=== PATIENT | female | born 1945 | race Caucasian/White ===

== ENCOUNTER 2017-10-26 08:25 | Day surgery (SDC) | payer MEDICARE, OTHER ==
--- NOTE | 2017-10-26 08:55 | PCM.PREANE ---
Preanesthetic Assessment - Procedure Proposed Procedure: cataract left - Anesthesia/Transfusion/Family Hx Anesthesia History: Prior Anesthesia Without Reaction Family History of Anesthesia Reaction: No Transfusion History: Prior Transfusion Without Reaction - Review of Systems General: No Symptoms Pulmonary: No Symptoms Cardiovascular: No Symptoms Gastrointestinal: No Symptoms Neurological: No Symptoms Other: Reports: None - Physical Assessment NPO Status Date: 10/25/17 NPO Status Time: 18:00 Pulse: 67 O2 Sat by Pulse Oximetry: 98 Respiratory Rate: 16 Blood Pressure: 143/67 Temperature: 97.1 F Height: 5 ft 8 in Weight: 79.379 kg ASA Class: 2 Mental Status: Alert & Oriented x3 Airway Class: Mallampati = 1 Dentition: Reports: Normal Dentition Thyro-Mental Finger Breadths: 3 Mouth Opening Finger Breadths: 3 ROM/Head Extension: Full Lungs: Clear to Auscultation, Normal Respiratory Effort Cardiovascular: Regular Rate, Regular Rhythm - Allergies Allergies/Adverse Reactions: Allergies Allergy/AdvReac Type Severity Reaction Status Date / Time No Known Allergies Allergy Verified 10/25/17 12:16 - Blood Blood Available: No - Acknowledgements Anesthesia Type Planned: MAC Pt an Appropriate Candidate for the Planned Anesthesia: Yes Alternatives and Risks of Anesthesia Discussed w Pt/Guardian: Yes Pt/Guardian Understands and Agrees with Anesthesia Plan: Yes PreAnesthesia Questionnaire HEENT History: Reports: Impaired Vision Cardiovascular History: Reports: High Cholesterol, Hypertension Respiratory History: Reports: None Gastrointestinal History: Reports: None Oncologic (Cancer) History: Reports: None - SUBSTANCE USE Smoking Status *Q: Never Smoker Tobacco Use Within Last Twelve Months: No Second Hand Smoke Exposure: No Days Per Week of Alcohol Use: 0 (seldom) Date of Last Drink: 10/25/17 Recreational Drug Use History: No - HOME MEDS Home Medications: Home Meds Aspirin 81 mg PO DAILY 10/25/17 [History] Lisinopril/Hydrochlorothiazide [Lisinopril-Hctz 10-12.5 mg Tab] 1 tab PO DAILY 10/25/17 [History] Lutein/Minerals/Vit A,C & E [Ocuvite] 1 tab PO DAILY 10/25/17 [History] Simvastatin [Zocor] 20 mg PO DAILY 10/25/17 [History] Ubidecarenone [COQ-10] 30 mg PO DAILY 10/25/17 [History] - CURRENT (IN HOUSE) MEDS Current Meds: Current Medications Brimonidine Tartrate (Alphagan 0.2% Ophth Soln) 0 ml EYELF ASDIRECTED PRISCILLA Stop: 10/26/17 19:00 Cefuroxime Sodium (Zinacef) 0 mg EYELF ASDIRECTED PRISCILLA Stop: 10/26/17 19:00 Lidocaine HCl (Xylocaine-Mpf 1%) 0 ml INJECT ASDIRECTED PRISCILLA Stop: 10/26/17 19:00 Phenylephrine HCl (Ben-Synephrine 2.5% Ophth Soln) 0 ml EYELF ASDIRECTED PRISCILLA Stop: 10/26/17 19:00 Pilocarpine HCl (Pilocar 4% Ophth Soln) 0 ml EYELF ASDIRECTED PRISCILLA Stop: 10/26/17 19:00 Polymyxin/Trimethoprim Sulfate (Polytrim Ophth Soln) 0 ml EYERT ASDIRECTED PRISCILLA Stop: 10/26/17 19:00 Tetracaine HCl (Tetracaine 0.5% Steri-Unit Jonna) 0 ml EYELF ASDIRECTED PRISCILLA Stop: 10/26/17 19:00 Tropicamide (Mydriacyl 1% Ophth Soln) 0 ml EYELF ASDIRECTED PRISCILLA Stop: 10/26/17 19:00
[2017-10-26] MEDS: Polymyxin B/Trimethoprim 10 ML Bottle EYERT SCH ×4 (09:03→10:43)
[2017-10-26] MEDS: Brimonidine 0.2% Ophth Soln 5 ML Bottle EYELF SCH ×4 (09:08→10:43)
[2017-10-26] MEDS: Phenylephrine 2.5% Ophth Soln 2 ML Bot EYELF SCH ×6 (09:13→10:22)
[2017-10-26] MEDS: Tropicamide 1% Ophth Soln 3 ML Bottle EYELF SCH ×4 (09:19→10:05)
[2017-10-26] MEDS: Tetracaine HCl/PF 0.5% 4 ML Bottle EYELF SCH ×3 (09:23→10:31)
[2017-10-26] MEDS: Lidocaine 1% PF 2 ML SDV INJECT SCH ×2 (09:23→10:31)
[2017-10-26] MEDS: Pilocarpine 4% Ophth Soln 15 ML Bot EYELF SCH ×2 (09:26→10:43)
[2017-10-26] MEDS: Cefuroxime 10 MG/ML SYRINGE EYELF SCH ×2 (09:27→10:42)
--- NOTE | 2017-10-26 10:45 | PCM48HPAN ---
Post Anesthesia Note - EVALUATION WITHIN 48HRS OF ANESTHETIC Vital Signs in Normal Range: Yes Patient Participated in Evaluation: Yes Respiratory Function Stable: Yes Airway Patent: Yes Cardiovascular Function Stable: Yes Hydration Status Stable: Yes Pain Control Satisfactory: Yes Nausea and Vomiting Control Satisfactory: Yes Mental Status Recovered: Yes Pulse Rate: 72 SaO2: 100 Resp Rate: 16 Temperature: 36.3 C Blood Pressure: 131/80
== END 2017-10-26 10:53 | disposition home or self-care (01) ==
LOC: JD.SDS 08:25
PROVIDERS: ATTEND Ophthalmology
DX: H25.813 Combined forms of age-related cataract, bilateral (principal); I10 Essential (primary) hypertension; E78.00 Pure hypercholesterolemia, unspecified; H35.3111 Nonexudative age-related macular degeneration, right eye, early dry stage; H16.223 Keratoconjunctivitis sicca, not specified as Sjogren's, bilateral; H02.831 Dermatochalasis of right upper eyelid; H16.103 Unspecified superficial keratitis, bilateral; Z79.82 Long term (current) use of aspirin
CPT/HCPCS: 66984; J0697; J2001; V2632; A9270-GY

== ENCOUNTER 2017-11-23 10:14 | Day surgery (SDC) | payer MEDICARE, OTHER ==
[~2017-11-23 10:14] MED LIST: Cefuroxime 10 MG/ML SYRINGE EYERT SCH; Lidocaine 1% PF 2 ML SDV INJECT SCH; Pilocarpine 4% Ophth Soln 15 ML Bot EYERT SCH
[2017-11-23] MEDS: Polymyxin B/Trimethoprim 10 ML Bottle EYERT SCH ×3 (11:14→12:45)
[2017-11-23] MEDS: Brimonidine 0.2% Ophth Soln 5 ML Bottle EYERT SCH ×3 (11:21→12:45)
[2017-11-23] MEDS: Phenylephrine 2.5% Ophth Soln 2 ML Bot EYERT SCH ×6 (11:28→12:23)
[2017-11-23] MEDS: Tropicamide 1% Ophth Soln 3 ML Bottle EYERT SCH ×4 (11:32→12:08)
--- NOTE | 2017-11-23 11:33 | PCM.PREANE ---
Preanesthetic Assessment - Anesthesia/Transfusion/Family Hx Anesthesia History: Prior Anesthesia Without Reaction Family History of Anesthesia Reaction: No Transfusion History: Prior Transfusion Without Reaction Intubation History: Unknown - Review of Systems General: No Symptoms Pulmonary: No Symptoms Cardiovascular: No Symptoms Gastrointestinal: No Symptoms Neurological: No Symptoms Other: Reports: None - Physical Assessment NPO Status Date: 11/22/17 NPO Status Time: 18:30 Pulse: 67 O2 Sat by Pulse Oximetry: 98 Respiratory Rate: 16 Blood Pressure: 129/61 ASA Class: 2 Mental Status: Alert & Oriented x3 Airway Class: Mallampati = 2 Dentition: Reports: Normal Dentition Thyro-Mental Finger Breadths: 3 Mouth Opening Finger Breadths: 3 ROM/Head Extension: Full Lungs: Clear to Auscultation, Normal Respiratory Effort Cardiovascular: Regular Rate, Regular Rhythm - Allergies Allergies/Adverse Reactions: Allergies Allergy/AdvReac Type Severity Reaction Status Date / Time catfish Allergy Cannot Uncoded 11/22/17 12:43 Remember - Acknowledgements Anesthesia Type Planned: MAC Pt an Appropriate Candidate for the Planned Anesthesia: Yes Alternatives and Risks of Anesthesia Discussed w Pt/Guardian: Yes Pt/Guardian Understands and Agrees with Anesthesia Plan: Yes PreAnesthesia Questionnaire HEENT History: Reports: Impaired Vision Cardiovascular History: Reports: High Cholesterol, Hypertension Respiratory History: Reports: None Gastrointestinal History: Reports: None Genitourinary History: Reports: None Musculoskeletal History: Reports: None Neurological History: Reports: None Psychiatric History: Reports: None Endocrine/Metabolic History: Reports: None Hematologic History: Reports: None Immunologic History: Reports: None Oncologic (Cancer) History: Reports: None Dermatologic History: Reports: None - Infectious Disease History Infectious Disease History: Reports: None - Past Surgical History Head Surgeries/Procedures: Reports: None HEENT Surgical History: Reports: Cataract Surgery Cardiovascular Surgical History: Reports: None Respiratory Surgical History: Reports: None GI Surgical History: Reports: Hernia, Abdominal Female Surgical History: Reports: Hysterectomy, Other (See Below) (bladder repair) Endocrine Surgical History: Reports: None Neurological Surgical History: Reports: Other (See Below) (spur removed off of spine) Musculoskeletal Surgical History: Reports: Carpal Tunnel (bilateral), Knee Replacement (R knee) Oncologic Surgical History: Reports: None Dermatological Surgical History: Reports: None - SUBSTANCE USE Smoking Status *Q: Never Smoker - HOME MEDS Home Medications: Home Meds Aspirin 81 mg PO DAILY 06/18/18 [History] Lisinopril/Hydrochlorothiazide [Lisinopril-Hctz 10-12.5 mg Tab] 1 tab PO DAILY 10/25/17 [History] Lutein/Minerals/Vit A,C & E [Ocuvite] 1 tab PO DAILY 10/25/17 [History] Simvastatin [Zocor] 20 mg PO DAILY 10/25/17 [History] Ubidecarenone [COQ-10] 30 mg PO DAILY 10/25/17 [History] - CURRENT (IN HOUSE) MEDS Current Meds: Current Medications Brimonidine Tartrate (Alphagan 0.2% Ophth Soln) 0 ml EYERT ASDIRECTED PRISCILLA Stop: 11/23/17 18:00 Last Admin: 11/23/17 11:21 Dose: 1 drop Cefuroxime Sodium (Zinacef) 0 mg EYERT ASDIRECTED PRISCILLA Stop: 11/23/17 18:00 Lidocaine HCl (Xylocaine-Mpf 1%) 0 ml INJECT ASDIRECTED PRISCILLA Stop: 11/23/17 18:00 Phenylephrine HCl (Ben-Synephrine 2.5% Ophth Soln) 0 ml EYERT ASDIRECTED PRISCILLA Stop: 11/23/17 18:00 Pilocarpine HCl (Pilocar 4% Ophth Soln) 0 ml EYERT ASDIRECTED PRISCILLA Stop: 11/23/17 18:00 Polymyxin/Trimethoprim Sulfate (Polytrim Ophth Soln) 0 ml EYERT ASDIRECTED PRISCILLA Stop: 11/23/17 18:00 Last Admin: 11/23/17 11:14 Dose: 1 drop Tetracaine HCl (Tetracaine 0.5% Steri-Unit Jonna) 0 ml EYERT ASDIRECTED PRISCILLA Stop: 11/23/17 18:00 Tropicamide (Mydriacyl 1% Ophth Soln) 0 ml EYERT ASDIRECTED PRISCILLA Stop: 11/23/17 18:00
[2017-11-23] MEDS: Tetracaine HCl/PF 0.5% 4 ML Bottle EYERT SCH ×2 (12:19→12:34)
--- NOTE | 2017-11-23 12:47 | PCM48HPAN ---
Post Anesthesia Note - EVALUATION WITHIN 48HRS OF ANESTHETIC Vital Signs in Normal Range: Yes Patient Participated in Evaluation: Yes Respiratory Function Stable: Yes Airway Patent: Yes Cardiovascular Function Stable: Yes Hydration Status Stable: Yes Pain Control Satisfactory: Yes Nausea and Vomiting Control Satisfactory: Yes Mental Status Recovered: Yes Pulse Rate: 63 SaO2: 100 Resp Rate: 16 Blood Pressure: 127/64
== END 2017-11-23 12:57 | disposition home or self-care (01) ==
LOC: JD.SDS 10:14
PROVIDERS: ATTEND Ophthalmology
DX: H25.811 Combined forms of age-related cataract, right eye (principal); I10 Essential (primary) hypertension; E78.00 Pure hypercholesterolemia, unspecified; Z79.82 Long term (current) use of aspirin; Z79.899 Other long term (current) drug therapy; Z98.42 Cataract extraction status, left eye; Z96.1 Presence of intraocular lens; H16.103 Unspecified superficial keratitis, bilateral; H16.223 Keratoconjunctivitis sicca, not specified as Sjogren's, bilateral
CPT/HCPCS: 66984; J0697; V2632; A9270-GY; J2001

== ENCOUNTER 2019-12-12 09:03 | Day surgery (SDC) | payer MEDICARE, OTHER ==
[~2019-12-12 09:03] MED LIST changes: -Cefuroxime 10 MG/ML SYRINGE EYERT SCH; +Lactated Ringers 1,000 ML IV SCH; +Lidocaine 1% 4 ML ONE; -Lidocaine 1% PF 2 ML SDV INJECT SCH; +Lidocaine 1%/Sod Bicarbonate in NS 8.4% 1 ML Syringe IDERM PRN; +Ondansetron 4 MG/2 ML SDV ONE; -Pilocarpine 4% Ophth Soln 15 ML Bot EYERT SCH; +Propofol 200 MG/20 ML SDV ONE; +Rocuronium 50 MG/5 ML Vial ONE; +Scopolamine 1.5 MG Transdermal Patch TRDERM SCH; +Sodium Chloride 0.9% 10 ML Syringe FLUSH PRN; +ceFAZolin 1 GM Vial ONE; +fentaNYL 250 MCG/5 ML SDV ONE
[2019-12-12] MEDS ORDERED: Lidocaine 1% with EPINEPHrine 1:100,000 20 ML MDV ONE (09:40)
[2019-12-12] MEDS ORDERED: Sodium Chloride 0.9% 50 ML SDV ONE (09:40)
--- NOTE | 2019-12-12 09:55 | PCM.PREANE ---
Preanesthetic Assessment - Anesthesia/Transfusion/Family Hx Anesthesia History: Prior Anesthesia Without Reaction Family History of Anesthesia Reaction: No Transfusion History: Prior Transfusion Without Reaction Intubation History: Unknown - Review of Systems General: No Symptoms Pulmonary: No Symptoms Cardiovascular: No Symptoms, Other (HTN controlled on meds, high cholesterol) Gastrointestinal: No Symptoms Neurological: No Symptoms Other: Reports: None - Physical Assessment NPO Status Date: 12/11/19 NPO Status Time: 19:30 Weight: 80 kg ASA Class: 2 Mental Status: Alert & Oriented x3 Airway Class: Mallampati = 2 Dentition: Reports: Normal Dentition Thyro-Mental Finger Breadths: 3 Mouth Opening Finger Breadths: 3 ROM/Head Extension: Full Lungs: Clear to Auscultation, Normal Respiratory Effort Cardiovascular: Regular Rate, Regular Rhythm - Lab Values: Laboratory Last Values WBC 4.85 K/mm3 (3.98-10.04) 12/12/19 09:28 RBC 4.07 M/mm3 (3.98-5.22) 12/12/19 09:28 Hgb 12.0 gm/dl (11.2-15.7) D 12/12/19 09:28 Hct 36.9 % (34.1-44.9) 12/12/19 09:28 MCV 90.7 fl (79.4-94.8) 12/12/19 09:28 MCH 29.5 pg (25.6-32.2) 12/12/19 09:28 MCHC 32.5 g/dl (32.2-35.5) 12/12/19 09:28 RDW Std Deviation 44.0 fL (36.4-46.3) 12/12/19 09:28 Plt Count 336 K/mm3 (182-369) D 12/12/19 09:28 MPV 9.6 fl (9.4-12.3) 12/12/19 09:28 Neut % (Auto) 52.7 % (34.0-71.1) 12/12/19 09:28 Lymph % (Auto) 31.1 % (19.3-51.7) 12/12/19 09:28 Vance % (Auto) 13.6 % (4.7-12.5) H 12/12/19 09:28 Eos % (Auto) 1.6 (0.7-5.8) 12/12/19 09:28 Baso % (Auto) 1.0 % (0.1-1.2) 12/12/19 09:28 Neut # (Auto) 2.55 K/mm3 (1.56-6.13) 12/12/19 09:28 Lymph # (Auto) 1.51 K/mm3 (1.18-3.74) 12/12/19 09:28 Vance # (Auto) 0.66 K/mm3 (0.24-0.36) H 12/12/19 09:28 Eos # (Auto) 0.08 K/mm3 (0.04-0.36) 12/12/19 09:28 Baso # (Auto) 0.05 K/mm3 (0.01-0.08) 12/12/19 09:28 - Allergies Allergies/Adverse Reactions: Allergies Allergy/AdvReac Type Severity Reaction Status Date / Time Fish Containing Products Allergy Hives Verified 12/11/19 14:01 - Blood Blood Available: No Product(s) Available: None - Acknowledgements Anesthesia Type Planned: General Anesthesia Pt an Appropriate Candidate for the Planned Anesthesia: Yes Alternatives and Risks of Anesthesia Discussed w Pt/Guardian: Yes Pt/Guardian Understands and Agrees with Anesthesia Plan: Yes PreAnesthesia Questionnaire HEENT History: Reports: Cataract Cardiovascular History: Reports: High Cholesterol, Hypertension Respiratory History: Reports: None Gastrointestinal History: Reports: None Genitourinary History: Reports: Other (See Below) Other Genitourinary History: CYSTOCELE, RECTOCELE, INCONTINENCE COMPLIANCE ASSISTANT History: Reports: Musculoskeletal History: Reports: None Other Musculoskeletal History: Right shoulder pain Neurological History: Reports: None Psychiatric History: Reports: None Endocrine/Metabolic History: Reports: None Hematologic History: Reports: None Immunologic History: Reports: None Oncologic (Cancer) History: Reports: None Dermatologic History: Reports: None - Infectious Disease History Infectious Disease History: Reports: None - Past Surgical History Head Surgeries/Procedures: Reports: None HEENT Surgical History: Reports: Cataract Surgery Cardiovascular Surgical History: Reports: None Respiratory Surgical History: Reports: None GI Surgical History: Reports: None Female Surgical History: Reports: Hysterectomy Endocrine Surgical History: Reports: None Neurological Surgical History: Reports: Other (See Below) Other Neurological Surgeries/Procedures: Neck surgery Musculoskeletal Surgical History: Reports: Carpal Tunnel, Knee Replacement, Shoulder Surgery Oncologic Surgical History: Reports: None Dermatological Surgical History: Reports: None - SUBSTANCE USE Smoking Status *Q: Never Smoker Recreational Drug Use History: No - HOME MEDS Home Medications: Home Meds Lisinopril/Hydrochlorothiazide [Lisinopril-Hctz 10-12.5 mg Tab] 1 tab PO DAILY 10/25/17 [History] Simvastatin [Zocor] 20 mg PO DAILY 10/25/17 [History] Cholecalciferol (Vitamin D3) [Vitamin D3] 5,000 unit PO DAILY 02/18/18 [History] Acetaminophen/oxyCODONE [Percocet 325-5 MG] 1 - 2 tab PO Q6H PRN #60 tablet 02/21/18 [Rx] Aspirin [Aspir 81] 81 mg PO DAILY 12/11/19 [History] Ubidecarenone [Coq-10] 200 mg PO DAILY 12/11/19 [History] - CURRENT (IN HOUSE) MEDS Current Meds: Current Medications Lactated Ringer's (Ringers, Lactated) 1,000 mls @ 125 mls/hr IV ASDIRECTED PRISCILLA Stop: 12/12/19 23:00 Lidocaine/Sodium Bicarbonate (Buffered Lidocaine 1% In Ns 8.4%) 0.25 ml IDERM ONETIME PRN PRN Reason: Prior to IV Start Stop: 12/12/19 23:00 Scopolamine (Transderm-Scop) 1.5 mg TRDERM ONETIME PRISCILLA Stop: 12/12/19 13:00 Sodium Chloride (Saline Flush) 10 ml FLUSH ASDIRECTED PRN PRN Reason: Keep Vein Open Stop: 12/12/19 23:00 Discontinued Medications Cefazolin Sodium (Ancef) Confirm Administered Dose 2 gm .ROUTE .STK-MED ONE Stop: 12/12/19 07:33 Fentanyl (Sublimaze) Confirm Administered Dose 250 mcg .ROUTE .STK-MED ONE Stop: 12/12/19 07:33 Lidocaine HCl (Xylocaine-Mpf 1%) Confirm Administered Dose 4 mls @ as directed .ROUTE .STK-MED ONE Stop: 12/12/19 07:34 Lidocaine/Epinephrine (Xylocaine 1% With Epinephrine 1:100,000) Confirm Administered Dose 20 ml .ROUTE .STK-MED ONE Stop: 12/12/19 09:41 Ondansetron HCl (Zofran) Confirm Administered Dose 4 mg .ROUTE .STK-MED ONE Stop: 12/12/19 07:33 Propofol (Diprivan 20 Ml) Confirm Administered Dose 200 mg .ROUTE .STK-MED ONE Stop: 12/12/19 07:33 Rocuronium [place] (Zemuron) Confirm Administered Dose 50 mg .ROUTE .STK-MED ONE Stop: 12/12/19 07:33 Sodium Chloride (Normal Saline) Confirm Administered Dose 50 ml .ROUTE .STK-MED ONE Stop: 12/12/19 09:41
[2019-12-12] MEDS ORDERED: Dexamethasone 4 MG/ML 5 ML MDV ONE (10:44)
[2019-12-12] MEDS ORDERED: Ketorolac 30 MG/ML SDV ONE (10:57)
[2019-12-12] MEDS ORDERED: ePHEDrine Sulfate/0.9% NaCl/Pf 25 MG/5 ML SYRINGE IV ONE (11:27)
[2019-12-12] MEDS ORDERED: Ondansetron 4 MG/2 ML SDV IVPUSH PRN (12:23)
[2019-12-12] MEDS ORDERED: fentaNYL 100 MCG/2 ML SDV IVPUSH PRN (12:23)
--- NOTE | 2019-12-12 12:23 | PCM.POSTAN ---
POST ANESTHESIA ASSESSMENT - MENTAL STATUS Mental Status: Alert, Oriented - VITAL SIGNS Vital Signs: Last Vital Signs Temp 36.2 C 12/12/19 09:55 Pulse 76 12/12/19 09:55 Resp 16 12/12/19 09:55 BP 141/75 H 12/12/19 09:55 Pulse Ox 98 12/12/19 09:55 - RESPIRATORY Respiratory Status: Respiratory Rate WNL, Airway Patent, O2 Saturation Stable, Supplemental Oxygen - CARDIOVASCULAR CV Status: Pulse Rate WNL, Blood Pressure Stable - GASTROINTESTINAL GI Status: No Symptoms - PAIN Pain Score: 0 - POST OP HYDRATION Hydration Status: Adequate & Stable
--- NOTE | 2019-12-12 12:23 | PCM.OPNOTE ---
- General Post-Op/Procedure Note Condition: Good Free Text/Narrative:: Intake & Output 12/11/19 12/12/19 12/12/19 22:59 06:59 14:59 Output Total 40 Balance -40
--- NOTE | 2019-12-12 12:46 | PCM.OPNOTE ---
- General Post-Op/Procedure Note Date of Surgery/Procedure: 12/12/19 Operative Procedure(s): anterior and posterior colporrhaphy and mid-urethral sling Pre Op Diagnosis: cystocele, rectocele, stress urinary incontinence Post-Op Diagnosis: Same Anesthesia Technique: General ET Tube Primary Surgeon: Henrik Drew Secondary Surgeon: Chauncey Hutchins Anesthesia Provider: Sherice Schwartz Tax Collection Coordinator: Elisa Gutierrez (PAS) Reason Tax Collection Coordinator Was Necessary: assistance with surgery, retraction, decrease co-morbidity and mortality Role of Tax Collection Coordinator: assistance with surgery, retraction, decrease co-morbidity and mortality Fluid Replacement, Intraop: 1,600 Output, Urine Amount: 40 EBL in mLs: 10 Drain/Tube Comments:: none Complications: None Condition: Good Free Text/Narrative:: Intake & Output 12/11/19 12/12/19 12/12/19 22:59 06:59 14:59 Output Total 40 Balance -40 [place] [facility] [place] general anesthesia with endotracheal intubation in low dorso-lithotomy position. Prepared and draped in sterile fashion. Time out performed. The apex of the vagina grasped with allis clamps and an allis clamp placed at the cysto-urethral angle. Injecting approximately 12 ml 0.25%lidocaine with epi just below the vaginal mucosa in area of planned incisions. Utilizing #15 blade an inverted "T" incision made in the anterior vaginal mucosa, undermining with Metzenbaums to the cystourethral angle. Utilizing allis clamps the vaginal mucosa placed under tension and dissecting the tissue plain then pushing the tissue plain cephalad the cystocele reduced without difficulty. Using 0 monocryl for plication sutures, beginning at the cystourethral angle and proceeding caudad the cystocele was reduced with the plication sutures. Redundant vaginal tissue excised. The vaginal mucosa approximated with 3-o monocryl running suture. The Mid-urethral sling procedure then performed. Rogers placed at the appropriate spots lateral to and at the level of the clitoris. Small amount of 0.25 % lidocaine with epi placed and 3 mm incisions made. Injecting 3 ml of the 0.25 % lidocaine with epi in area of planned incision, a verticle incision made along the line of the urethra. Undermining and pushing tissue cephalad until bladder pushed cephalad and foramen reached bilaterally. The mesh needle placed distal to the bladder and mesh inserted in tip and pulled through the left side, and same procedure performed on right side and pulled mesh against #15 fiona dilator, for tension free suspension and confirming that mesh flat and redundant mesh removed at each side and allowed to slip below the skin level. The vaginal mucose closed with running 3-O monocryl. Attention then turned to the posterior repair. Using allis clamps placed at the introitus and one at apex of the planned incision. Injecting approximately 5 ml of 0.25% lidocaine with epi beneath the vaginal mucose a lizzy shaped incision made a the perineum and then straight to the vaginal allis . Undermining the tissue the rectocele reducedand plication sutures placed beginning at the apex of the incision and redundant vaginal mucosa excised. The vaginal mucosa approximated with 3-O monocryl. The perineoplasty portion performed witilizing 0-monocryl and the vaginal mucosa and perineal mucosa closed with 3-O monocryl. Sponge, needle and pack counts correct. 180 ml of saline placed in the bladder. Patient transported to PACU in satisfactory condition. I talked with her after the procedure and all questions answered to voiced satisfaction. Will keep on extended recovery tonight. Probably home tomorrow.
[2019-12-12] MEDS: Ketorolac 15 MG/ML SDV IVPUSH SCH (17:26)
[2019-12-13] MEDS: Ketorolac 15 MG/ML SDV IVPUSH SCH ×2 (00:26→06:17)
--- NOTE | 2019-12-13 07:24 | PCM48HPAN ---
Post Anesthesia Note - EVALUATION WITHIN 48HRS OF ANESTHETIC Vital Signs in Normal Range: Yes Patient Participated in Evaluation: Yes Respiratory Function Stable: Yes Airway Patent: Yes Cardiovascular Function Stable: Yes Hydration Status Stable: Yes Pain Control Satisfactory: Yes Nausea and Vomiting Control Satisfactory: Yes Mental Status Recovered: Yes Vital Signs: Last Vital Signs Temp 36.7 C 12/13/19 06:16 Pulse 68 12/13/19 06:17 Resp 20 12/13/19 06:16 BP 97/55 L 12/13/19 06:17 Pulse Ox 93 L 12/13/19 06:17
--- NOTE | 2019-12-13 08:50 | PCM.DCSUM1 ---
Discharge Summary - Hospital Course Free Text/Narrative:: [facility] Post-Op/Procedure Note Patient Name: LIANNE WATT Date of : 1945 Patient Status: Surgical Day Care Attending Provider: Henrik Drew Date: 12/12/19 12:14 Initialization Date: 12/12/19 12:14 - General Post-Op/Procedure Note Date of Surgery/Procedure: 12/12/19 Operative Procedure(s): anterior and posterior colporrhaphy and mid-urethral sling Pre Op Diagnosis: cystocele, rectocele, stress urinary incontinence Post-Op Diagnosis: Same Anesthesia Technique: General ET Tube Primary Surgeon: Henrik Drew Secondary Surgeon: Chauncey Hutchins Anesthesia Provider: Sherice Schwartz Certified Rehabilitation Counselor: Elisa Gutierrez ([facility]) Reason Certified Rehabilitation Counselor Was Necessary: assistance with surgery, retraction, decrease co-morbidity and mortality Role of Certified Rehabilitation Counselor: assistance with surgery, retraction, decrease co-morbidity and mortality Fluid Replacement, Intraop: 1,600 Output, Urine Amount: 40 EBL in mLs: 10 Drain/Tube Comments:: none Complications: None Condition: Good Free Text/Narrative:: Intake & Output 12/11/19 12/12/19 12/12/19 22:59 06:59 14:59 Output Total 40 Balance -40 Patient transported to operatin room in [facility], placed under general anesthesia with endotracheal intubation in low dorso-lithotomy position. Prepared and draped in sterile fashion. Time out performed. The apex of the vagina grasped with allis clamps and an allis clamp placed at the cysto-urethral angle. Injecting approximately 12 ml 0.25%lidocaine with epi just below the vaginal mucosa in area of planned incisions. Utilizing #15 blade an inverted "T" incision made in the anterior vaginal mucosa, undermining with Metzenbaums to the cystourethral angle. Utilizing allis clamps the vaginal mucosa placed under tension and dissecting the tissue plain then pushing the tissue plain cephalad the cystocele reduced without difficulty. Using 0 monocryl for plication sutures, beginning at the cystourethral angle and proceeding caudad the cystocele was reduced with the plication sutures. Redundant vaginal tissue excised. The vaginal mucosa approximated with 3-o monocryl running suture. The Mid-urethral sling procedure then performed. Rogers placed at the appropriate spots lateral to and at the level of the clitoris. Small amount of 0.25 % lidocaine with epi placed and 3 mm incisions made. Injecting 3 ml of the 0.25 % lidocaine with epi in area of planned incision, a verticle incision made along the line of the urethra. Undermining and pushing tissue cephalad until bladder pushed cephalad and foramen reached bilaterally. The mesh needle placed distal to the bladder and mesh inserted in tip and pulled through the left side, and same procedure performed on right side and pulled mesh against #15 fiona dilator, for tension free suspension and confirming that mesh flat and redundant mesh removed at each side and allowed to slip below the skin level. The vaginal mucose closed with running 3-O monocryl. Attention then turned to the posterior repair. Using allis clamps placed at the introitus and one at apex of the planned incision. Injecting approximately 5 ml of 0.25% lidocaine with epi beneath the vaginal mucose a lizzy shaped incision made a the perineum and then straight to the vaginal allis . Undermining the tissue the rectocele reducedand plication sutures placed beginning at the apex of the incision and redundant vaginal mucosa excised. The vaginal mucosa approximated with 3-O monocryl. The perineoplasty portion performed witilizing 0-monocryl and the vaginal mucosa and perineal mucosa closed with 3-O monocryl. Sponge, needle and pack counts correct. 180 ml of saline placed in the bladder. Patient transported to PACU in satisfactory condition. I talked with her after the procedure and all questions answered to voiced satisfaction. Will keep on extended recovery tonight. Probably home tomorrow. HPI Initial Comments: [place] Post-Op/Procedure Note Patient Name: LIANNE WATT Date of : 1945 Patient Status: Surgical Day Care Attending Provider: Henrik Drew Date: 12/12/19 12:14 Initialization Date: 12/12/19 12:14 - General Post-Op/Procedure Note Date of Surgery/Procedure: 12/12/19 Operative Procedure(s): anterior and posterior colporrhaphy and mid-urethral sling Pre Op Diagnosis: cystocele, rectocele, stress urinary incontinence Post-Op Diagnosis: Same Anesthesia Technique: General ET Tube Primary Surgeon: Henrik Drew Secondary Surgeon: Chauncey Hutchins Anesthesia Provider: Sherice Schwartz Certified Rehabilitation Counselor: Elisa Gutierrez ([facility]) Reason Certified Rehabilitation Counselor Was Necessary: assistance with surgery, retraction, decrease co-morbidity and mortality Role of Certified Rehabilitation Counselor: assistance with surgery, retraction, decrease co-morbidity and mortality Fluid Replacement, Intraop: 1,600 Output, Urine Amount: 40 EBL in mLs: 10 Drain/Tube Comments:: none Complications: None Condition: Good Free Text/Narrative:: Intake & Output 12/11/19 12/12/19 12/12/19 22:59 06:59 14:59 Output Total 40 Balance -40 Patient transported to operatin room in [facility], placed under general anesthesia with endotracheal intubation in low dorso-lithotomy position. Prepared and draped in sterile fashion. Time out performed. The apex of the vagina grasped with allis clamps and an allis clamp placed at the cysto-urethral angle. Injecting approximately 12 ml 0.25%lidocaine with epi just below the vaginal mucosa in area of planned incisions. Utilizing #15 blade an inverted "T" incision made in the anterior vaginal mucosa, undermining with Metzenbaums to the cystourethral angle. Utilizing allis clamps the vaginal mucosa placed under tension and dissecting the tissue plain then pushing the tissue plain cephalad the cystocele reduced without difficulty. Using 0 monocryl for plication sutures, beginning at the cystourethral angle and proceeding caudad the cystocele was reduced with the plication sutures. Redundant vaginal tissue excised. The vaginal mucosa approximated with 3-o monocryl running suture. The Mid-urethral sling procedure then performed. Rogers placed at the appropriate spots lateral to and at the level of the clitoris. Small amount of 0.25 % lidocaine with epi placed and 3 mm incisions made. Injecting 3 ml of the 0.25 % lidocaine with epi in area of planned incision, a verticle incision made along the line of the urethra. Undermining and pushing tissue cephalad until bladder pushed cephalad and foramen reached bilaterally. The mesh needle placed distal to the bladder and mesh inserted in tip and pulled through the left side, and same procedure performed on right side and pulled mesh against #15 fiona dilator, for tension free suspension and confirming that mesh flat and redundant mesh removed at each side and allowed to slip below the skin level. The vaginal mucose closed with running 3-O monocryl. Attention then turned to the posterior repair. Using allis clamps placed at the introitus and one at apex of the planned incision. Injecting approximately 5 ml of 0.25% lidocaine with epi beneath the vaginal mucose a lizzy shaped incision made a the perineum and then straight to the vaginal allis . Undermining the tissue the rectocele reducedand plication sutures placed beginning at the apex of the incision and redundant vaginal mucosa excised. The vaginal mucosa approximated with 3-O monocryl. The perineoplasty portion performed witilizing 0-monocryl and the vaginal mucosa and perineal mucosa closed with 3-O monocryl. Sponge, needle and pack counts correct. 180 ml of saline placed in the bladder. Patient transported to PACU in satisfactory condition. I talked with her after the procedure and all questions answered to voiced satisfaction. Will keep on extended recovery tonight. Probably home tomorrow. Brief History: [facility] . Post-Op/Procedure Note. Patient Name: LIANNE WATT edical Record Number: [id number]. Date of : 1945Patient Status: Surgical Day Care. Attending Provider: Henrik Drewount Number: [id number]. Date: 12/12/19 12:14Initialization Date: 12:14. - General Post-Op/Procedure Note. Date of Surgery/Procedure: 12/12/19. Operative Procedure(s): anterior and posterior colporrhaphy and mid- urethral sling. Pre Op Diagnosis: cystocele, rectocele, stress urinary incontinence. Post-Op Diagnosis: Same. Anesthesia Technique: General ET Tube. Primary Surgeon: Henrik Drew. Secondary Surgeon: Chauncey Hutchins. Anesthesia Provider: Sherice Schwartz. Certified Rehabilitation Counselor: Elisa Gutierrez ([facility]). Reason Certified Rehabilitation Counselor Was Necessary: assistance with surgery, retraction, decrease co-morbidity and mortality. Role of Certified Rehabilitation Counselor: assistance with surgery, retraction, decrease co-morbidity and mortality. Fluid Replacement, Intraop: 1,600. Output, Urine Amount: 40. EBL in mLs: 10. Drain/Tube Comments:: none. Complications: None. Condition: Good. Free Text/Narrative:: Intake & Output. 12/11/2007/08/2007. [id number]. Output Total40. Balance-40. Patient transported to operatin room in [facility], placed under general anesthesia with endotracheal intubation in low dorso-lithotomy position. Prepared and draped in sterile fashion. Time out performed. The apex of the vagina grasped with allis clamps and an allis clamp placed at the cysto-urethral angle. Injecting approximately 12 ml 0.25%lidocaine with epi just below the vaginal mucosa in area of planned incisions. Utilizing #15 blade an inverted "T" incision made in the anterior vaginal mucosa, undermining with Metzenbaums to the cystourethral angle. Utilizing allis clamps the vaginal mucosa placed under tension and dissecting the tissue plain then pushing the tissue plain cephalad the cystocele reduced without difficulty. Using 0 monocryl for plication sutures, beginning at the cystourethral angle and proceeding caudad the cystocele was reduced with the plication sutures. Redundant vaginal tissue excised. The vaginal mucosa approximated with 3-o monocryl running suture. The Mid-urethral sling procedure then performed. Rogers placed at the appropriate spots lateral to and at the level of the clitoris. Small amount of 0.25 % lidocaine with epi placed and 3 mm incisions made. Injecting 3 ml of the 0.25 % lidocaine with epi in area of planned incision, a verticle incision made along the line of the urethra. Undermining and pushing tissue cephalad until bladder pushed cephalad and foramen reached bilaterally. The mesh needle placed distal to the bladder and mesh inserted in tip and pulled through the left side, and same procedure performed on right side and pulled mesh against #15 fiona dilator, for tension free suspension and confirming that mesh flat and redundant mesh removed at each side and allowed to slip below the skin level. The vaginal mucose closed with running 3-O monocryl. Attention then turned to the posterior repair. Using allis clamps placed at the introitus and one at apex of the planned incision. Injecting approximately 5 ml of 0.25% lidocaine with epi beneath the vaginal mucose a lizzy shaped incision made a the perineum and then straight to the vaginal allis . Undermining the tissue the rectocele reducedand plication sutures placed beginning at the apex of the incision and redundant vaginal mucosa excised. The vaginal mucosa approximated with 3-O monocryl. The perineoplasty portion performed witilizing 0-monocryl and the vaginal mucosa and perineal mucosa closed with 3-O monocryl. Sponge, needle and pack counts correct. 180 ml of saline placed in the bladder. Patient transported to PACU in satisfactory condition. I talked with her after the procedure and all questions answered to voiced satisfaction. Will keep on extended recovery tonight. Probably home tomorrow. Diagnosis: Stroke: No - Discharge Data Discharge Date: 12/13/19 Discharge Disposition: Home, Self-Care 01 Condition: Good - Referral to Home Health Primary Care Physician: Ryan Torres MD - Discharge Diagnosis/Problem(s) (1) Cystocele SNOMED Code(s): 305074270 ICD Code: [id number] - Status: Acute Current Visit: Yes (2) Rectocele SNOMED Code(s): 2733142 ICD Code: N81.6 - RECTOCELE Status: Acute Current Visit: Yes (3) DAVY (stress urinary incontinence, female) SNOMED Code(s): 98403353 ICD Code: N39.3 - STRESS INCONTINENCE (FEMALE) (MALE) Status: Acute Current Visit: Yes - Patient Summary/Data Operative Procedure(s) Performed: anterior and posterior colporrhaphy and mid- urethral sling Complications: None Consults: None Hospital Course: Uneventful - Patient Instructions Diet: Usual Diet as Tolerated Driving: Do Not Drive (X2 weeks) Showering/Bathing: May Shower, No Tub Bathing/Swimming (6 weeks) Notify Provider of: Fever, Increased Pain, Swelling and Redness, Drainage, Nausea and/or Vomiting - Discharge Plan *PRESCRIPTION DRUG MONITORING PROGRAM REVIEWED*: Not Applicable *COPY OF PRESCRIPTION DRUG MONITORING REPORT IN PATIENT LEYDA: Not Applicable Home Medications: Home Meds Lisinopril/Hydrochlorothiazide [Lisinopril-Hctz 10-12.5 mg Tab] 1 tab PO DAILY 10/25/17 [History] Simvastatin [Zocor] 20 mg PO DAILY 10/25/17 [History] Cholecalciferol (Vitamin D3) [Vitamin D3] 5,000 unit PO DAILY 02/18/18 [History] Aspirin [Aspir 81] 81 mg PO DAILY 12/11/19 [History] Ubidecarenone [Coq-10] 200 mg PO DAILY 12/11/19 [History] Referrals: Henrik Drew MD [Physician] - (Return to clinic in 2 weeks patient has follow-up appointment for postop check) - Discharge Summary/Plan Comment DC Time >30 min.: No - Patient Data Vitals - Most Recent: Last Vital Signs Temp 98.4 F 12/13/19 07:44 Pulse 71 12/13/19 07:44 Resp 16 12/13/19 07:44 BP 106/75 12/13/19 07:44 Pulse Ox 97 12/13/19 07:44 Weight - Most Recent: 176 lb 5.917 oz I&O - Last 24 hours: Intake & Output 12/12/19 12/13/19 12/13/19 22:59 06:59 14:59 Intake Total 180 Balance 180 Lab Results - Last 24 hrs: Laboratory Results - last 24 hr 12/12/19 12/12/19 12/12/19 Range/Units 09:28 09:28 09:28 WBC 4.85 (3.98-10.04) K/mm3 RBC 4.07 (3.98-5.22) M/mm3 Hgb 12.0 D (11.2-15.7) gm/dl Hct 36.9 (34.1-44.9) % MCV 90.7 (79.4-94.8) fl MCH 29.5 (25.6-32.2) pg MCHC 32.5 (32.2-35.5) g/dl RDW Std Deviation 44.0 (36.4-46.3) fL Plt Count 336 D (182-369) K/mm3 MPV 9.6 (9.4-12.3) fl Neut % (Auto) 52.7 (34.0-71.1) % Lymph % (Auto) 31.1 (19.3-51.7) % [place] % (Auto) 13.6 H (4.7-12.5) % Eos % (Auto) 1.6 (0.7-5.8) Baso % (Auto) 1.0 (0.1-1.2) % Neut # (Auto) 2.55 (1.56-6.13) K/mm3 Lymph # (Auto) 1.51 (1.18-3.74) K/mm3 [place] # (Auto) 0.66 H (0.24-0.36) K/mm3 Eos # (Auto) 0.08 (0.04-0.36) K/mm3 Baso # (Auto) 0.05 (0.01-0.08) K/mm3 Manual Slide Review Normal smear Sodium 138 (136-145) mEq/L Potassium 4.0 (3.5-5.1) mEq/L Chloride 102 (98-107) mEq/L Carbon Dioxide 26 (21-32) mEq/L Anion Gap 14.0 (5-15) Blood Type O POSITIVE Gel Antibody Screen Negative Med Orders - Current: Current Medications Aspirin (Halfprin) 81 mg PO DAILY [facility] Fentanyl (Sublimaze) 50 mcg IVPUSH Q5M PRN PRN Reason: pain Hydrochlorothiazide (Hydrochlorothiazide) 12.5 mg PO DAILY [facility] Ibuprofen (Motrin) 400 mg PO Q6H PRN PRN Reason: Pain Lisinopril (Prinivil) 10 mg PO DAILY [facility] Ondansetron HCl (Zofran) 4 mg IVPUSH ONETIME PRN PRN Reason: Nausea/Vomiting Discontinued Medications Cefazolin Sodium (Ancef) Confirm Administered Dose 2 gm .ROUTE .STK-MED ONE Stop: 12/12/19 07:33 Dexamethasone (Dexamethasone) Confirm Administered Dose 20 mg .ROUTE .STK-MED O NE Stop: 12/12/19 10:45 Ephedrine Sulfate (Ephedrine 25 Mg/5 Ml Syringe) Confirm Administered Dose 25 mg IV .STK-MED ONE Stop: 12/12/19 11:28 Fentanyl (Sublimaze) Confirm Administered Dose 250 mcg .ROUTE .STK-MED ONE Stop: 12/12/19 07:33 Glycopyrrolate () Confirm Administered Dose 1 mg .ROUTE .STK-MED ONE Stop: 12/12/19 11:21 Lactated Ringer's (Ringers, Lactated) 1,000 mls @ 125 mls/hr IV ASDIRECTED [facility] Stop: 12/12/19 23:00 Last Admin: 12/12/19 09:53 Dose: 125 mls/hr Documented by: Lidocaine HCl (Xylocaine-Mpf 1%) Confirm Administered Dose 4 mls @ as directed .ROUTE .STK-MED ONE Stop: 12/12/19 07:34 Ketorolac Tromethamine (Toradol) Confirm Administered Dose 30 mg .ROUTE .STK-MED ONE Stop: 12/12/19 10:58 Ketorolac Tromethamine (Toradol) 15 mg IVPUSH Q6H [facility] Stop: 12/13/19 06:01 Last Admin: 12/13/19 06:17 Dose: 15 mg Documented by: Lidocaine/Epinephrine (Xylocaine 1% With Epinephrine 1:100,000) Confirm Administered Dose 20 ml .ROUTE .STK-MED ONE Stop: 12/12/19 09:41 Last Admin: 12/12/19 11:01 Dose: 7.25 ml Documented by: Lidocaine/Sodium Bicarbonate (Buffered Lidocaine 1% In Ns 8.4%) 0.25 ml IDERM ONETIME PRN PRN Reason: Prior to IV Start Stop: 12/12/19 23:00 Last Admin: 12/12/19 09:53 Dose: 0.25 ml Documented by: Neostigmine Methylsulfate (Neostigmine Methylsulfate) Confirm Administered Dose 5 mg .ROUTE .STK-MED ONE Stop: 12/12/19 11:21 Non-Formulary Medication (Lisinopril/Hydrochlorothiazide [Lisinopril-Hctz 10- 12.5 Mg Tab]) 1 tab PO DAILY [facility] Ondansetron HCl (Zofran) Confirm Administered Dose 4 mg .ROUTE .STK-MED ONE Stop: 12/12/19 07:33 Propofol (Diprivan 20 Ml) Confirm Administered Dose 200 mg .ROUTE .STK-MED ONE Stop: 12/12/19 07:33 Rocuronium [place] (Zemuron) Confirm Administered Dose 50 mg .ROUTE .STK-MED ONE Stop: 12/12/19 07:33 Scopolamine (Transderm-Scop) 1.5 mg TRDERM ONETIME [facility] Stop: 12/12/19 13:00 Last Admin: 12/12/19 10:01 Dose: 1.5 mg Documented by: Sodium Chloride (Saline Flush) 10 ml FLUSH ASDIRECTED PRN PRN Reason: Keep Vein Open Stop: 12/12/19 23:00 Sodium Chloride (Normal Saline) Confirm Administered Dose 50 ml .ROUTE .STK-MED ONE Stop: 12/12/19 09:41 Last Admin: 12/12/19 11:01 Dose: 21.75 ml Documented by:
[2019-12-13] MEDS ORDERED: Aspirin 81 MG Tab.EC PO SCH (09:00)
[2019-12-13] MEDS ORDERED: Lisinopril 10 MG Tab PO SCH (09:00)
[2019-12-13] MEDS ORDERED: Hydrochlorothiazide 12.5 MG Cap PO SCH (09:00)
[2019-12-13] MEDS ORDERED: Ibuprofen 400 MG Tab PO PRN (12:00)
== END 2019-12-13 10:19 | disposition home or self-care (01) ==
LOC: JD.SDS 09:03 → JD.MS 09:04 → JD.SDS 12-13 10:19
PROVIDERS: ATTEND Obstetrics & Gynecology
DX: N39.3 Stress incontinence (female) (male) (principal); N81.10 Cystocele, unspecified; N81.6 Rectocele; I10 Essential (primary) hypertension; Z79.899 Other long term (current) drug therapy; Z79.82 Long term (current) use of aspirin; Z91.013 Allergy to seafood
CPT/HCPCS: 36415; 57260; 57288; 80051; 85025; 86850; 86900; 86901; 93005; A9270; C1771; J0171; J0690; J1100; J1885; J2001; J2405; J2704; J2710; J3010; J7120; 00942